=== PATIENT | male | born 1965 | race Caucasian/White ===

== ENCOUNTER 2020-04-30 14:23 | Outpatient (CLI) | payer OTHER, SELFPAY ==
--- NOTE | 2020-04-30 14:25 | ECG_ITS ---
Measurements Intervals [place] Rate: 94 P: 67 NH: 151 QRS: 37 QRSD: 77 T: 67 QT: 335 QTc: 421 Interpretive Statements SINUS RHYTHM VOLTAGE CRITERIA FOR LVH BORDERLINE ECG Electronically Signed On 04-30-2020 15:53:09 PRIMARY SUBSTANCE ABUSE COUNSELOR by Scottie Abreu D.O.
== END 2020-04-30 14:24 | disposition home or self-care (01) ==
LOC: ANHSURGERY 14:25
PROVIDERS: PCP Emergency Medicine; Visit Provider Surgery
DX: Z01.818 Encounter for other preprocedural examination (principal); K40.20 Bilateral inguinal hernia, without obstruction or gangrene, not specified as recurrent; E78.00 Pure hypercholesterolemia, unspecified
CPT/HCPCS: 36415; 86850; 86900; 86901; 93005

== ENCOUNTER 2020-05-04 02:05 | Outpatient (CLI) | payer OTHER, SELFPAY ==
[2020-05-04 20:08] LABS: SARS-CoV-2 RNA PCR Negative
== END 2020-05-04 02:06 | disposition home or self-care (01) ==
LOC: ANHCOVIDDT 02:05
PROVIDERS: PCP Emergency Medicine; Visit Provider Surgery
DX: Z01.818 Encounter for other preprocedural examination (principal); Z20.828 Contact with and (suspected) exposure to other viral communicable diseases
CPT/HCPCS: C9803; U0003

== ENCOUNTER 2020-05-07 01:42 | Day surgery (SDC) | payer OTHER, SELFPAY ==
[2020-04-29 14:36] VITALS: BMI 25.9
--- NOTE | 2020-05-06 10:24 | WPDANESEPPF ---
Anes - Initial Pre Proc Eval Procedure: Operation Date: 05/07/20 12:00 Proposed Procedures p Laparoscopic Bilateral Inguinal Hernia Repair wtih Mesh, Davinci Assisted - Maykel Sellers DO Date/Time: 05/06/20 10:24 Surgeon: Maykel Sellers DO Pre Op Diagnosis: bilat inguinal hernia Patient Data Age: 54 Gender: M Height: 1.7 m Weight: 75 kg Allergies Allergy/AdvReac Type Severity Reaction Status Date / Time No Known Allergies Allergy Verified 05/07/20 10:38 Home Medications Medication Instructions Recorded Confirmed Type simvastatin 20 mg tablet 20 mg PO HS 04/11/20 05/07/20 History Patient hx anesthesia problems: none Family hx anesthesia problems: none [facility] Past Medical History Medical History High cholesterol Surgical History Surgical History H/O abdominal surgery umbilicoplasty Family History Family History Father Bone cancer Diabetes mellitus Mother Diabetes mellitus Social History Social History Smoking packs per day: 1 Smoking cigarettes per day: 20.0 Years smoked: 30 Smoking pack-years: 30.00 Smoking status: Former smoker Smoking end date: 11/01/11 Alcohol intake: current Drinks per week: 6 Alcohol use details: 6/DAY Substance use: never Living arrangements: with family Additional living arrangements comments: BROTHER, SON, DAUGHTER AND THEIR FAMILIES 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 Gender identity (if verbalized by the patient): Male Spiritual care concerns: No Anes - Eval Final PreProcedure Day of Procedure 05/06/20 10:24 Patient weight: overweight Heart: regular rate and rhythm Lungs: clear to auscultation and normal air movement Airway: Mallampati scale class II and special considerations poor dentition Neurological: alert and oriented Last oral intake: >/= 8 hours ASA classification: III Emergent: no Anesthetic plan: proceed Anesthesia type and monitoring: general ETT and standard monitoring Informed Consent: The patient's anesthetic plan and its attendant risks and benefits were discussed with the patient/family/POA. Questions were solicited and answers provided to the satisfaction of the patient/family/POA.
[2020-05-07] VITALS (8 sets, daily range): BP systolic 119–138; BP diastolic 63–94; PULSE 65–95; RESP 10–18; TEMP 36.1–36.7; O2SAT 98–100; BMI 26.4
[2020-05-07] MEDS: ACETAMINOPHEN 500 MG TABLET 1000 MG PO (10:50)
[2020-05-07] MEDS: KETOROLAC 15 MG/ML VIAL (*BKC) IV PUSH (10:50)
[2020-05-07] MEDS: LACTATED RINGERS 1,000 ML 30 ML IV CONT ×3 (10:51→17:16)
--- NOTE | 2020-05-07 13:31 | WPDHPUPDATE1 ---
History and Physical Update Update Date/Time: 05/07/20 13:31 History and Physical has been reviewed, including an updated exam of the patient. There are NO changes in the patient's condition. Risks, benefits, and alternatives have been discussed and questions answered. Patient agrees to proceed with procedure.
[2020-05-07] MEDS: ceFAZolin 2 GM/D5W 50 ML 2 GM/50 ML BAG IVPB (14:02)
[2020-05-07] MEDS: BUPIVACAINE HCL 0.5% PF 30 ML VIAL INFILTRATE (14:48)
--- NOTE | 2020-05-07 15:32 | PM.PROC ---
Procedure Note - Detailed Date of procedure: 05/07/20 Pre-op diagnosis: bilat inguinal hernia Post-op diagnosis: same (bilateral indirect inguinal hernia) Procedure performed: Laparoscopic bilateral inguinal hernia repair with Progrip mesh, da Courtney assisted Description of procedure: Procedure as well as risks, benefits, and alternatives were discussed with the patient. Written consent was obtained and placed in chart prior to procedure. Patient was brought back to surgical suite. He was placed supine on operating table. Time-out was done to confirm patient and procedure. He was then intubated by Anesthesia Department. His abdomen was prepped and draped in sterile fashion using chlorhexidine prep. 0.5% bupivacaine with epinephrine was infiltrated at each location for incision. A 12 millimeter transverse incision was made just superior to the umbilicus using a 15 blade scalpel. Blunt dissection was carried out down to the linea alba. A vertical incision was made at the linea alba using a 15 blade scalpel. The peritoneum was then bluntly entered. A 12 millimeter trocar was inserted and carbon dioxide insufflation was used to create a pneumoperitoneum. A camera was inserted and the abdominal cavity was inspected. The patient was placed in slight Trendelenburg position. An 8 millimeter incision was made on the right lateral abdomen and an 8 millimeter trocar was inserted under direct visualization. Another 8 millimeter incision was made in the left lateral abdomen and an 8 millimeter trocar was inserted under direct visualization. The robotic arms were brought up to the patient's bedside and secured to the ports. The camera and instruments were inserted. I then moved over to the robotic console and took control of the camera and instruments. After careful inspection of the abdominal cavity, I began scoring the peritoneum along the right lower quadrant using scissors with electrocautery. The preperitoneal plane was entered and this was carefully dissected caudally along the inferior epigastric vessels. Careful dissection with scissors with electrocautery and blunt dissection was used to continue this dissection. I dissected far enough laterally to allow for mesh placement, and also dissected medially to identify the pubic arch and Wally's ligament. The hernia sac was identified and carefully dissected posteriorly. The cord contents were also identified and the peritoneum was carefully dissected far enough posteriorly to allow for mesh placement. Once an adequate pocket was created, I then placed the mesh within the preperitoneal pocket and carefully unfolded it. The mesh was centered on the hernia defect with adequate overlap circumferentially. The inferior edge of the mesh was inspected to ensure that it was far enough away from the peritoneal edge. The mesh appeared in proper position overlying the entire myopectineal orifice. The peritoneum was then closed over the mesh using a 3-0 V-lock running absorbable suture. I then began scoring the peritoneum along the left lower quadrant using scissors with electrocautery. The preperitoneal plane was entered and this was carefully dissected caudally along the inferior epigastric vessels. Careful dissection with scissors with electrocautery and blunt dissection was used to continue this dissection. I dissected far enough laterally to allow for mesh placement, and also dissected medially to identify the pubic arch and Wally's ligament. The hernia sac was identified and carefully dissected posteriorly. The cord contents were also identified and the peritoneum was carefully dissected far enough posteriorly to allow for mesh placement. Once an adequate pocket was created, I then placed the mesh within the preperitoneal pocket and carefully unfolded it. The mesh was centered on the hernia defect with adequate overlap circumferentially. The inferior edge of the mesh was inspected to ensure that it was far enough aw
== END 2020-05-07 18:30 | disposition home or self-care (01) ==
PROVIDERS: PCP Emergency Medicine; Visit Provider Surgery
PROC: 8E0Y4CZ Robotic Assisted Procedure of Lower Extremity, Percutaneous Endoscopic Approach (ICD-10-PCS; CPT 49650; principal; 2020-05-07 12:00)
DX: K40.20 Bilateral inguinal hernia, without obstruction or gangrene, not specified as recurrent (principal); E78.00 Pure hypercholesterolemia, unspecified; Z87.891 Personal history of nicotine dependence
CPT/HCPCS: 49650; S2900; A9270; C1781; J0330; J0690; J1100; J1885; J2250; J2405; J2704; J3010; J7120